=== PATIENT | female | born 1940 | race Caucasian/White ===

== ENCOUNTER 2017-06-23 15:08 | Emergency (ER) | payer OTHER ==
[~2017-06-23] VITALS: Ht 167.6 cm; Wt 77.0 kg
[2017-06-23 15:39] VITALS: BP 130/73; PULSE 75; RESP 20; TEMP 98.1; O2SAT 97
[2017-06-23 16:04] VITALS: BP 165/71; PULSE 92; RESP 20; O2SAT 93
[2017-06-23] MEDS ORDERED: SYMB80AE INH (16:04)
[2017-06-23] MEDS ORDERED: SPIRCAP INH (16:04)
[2017-06-23] MEDS ORDERED: ALBU6.7H INH (16:04)
--- NOTE | 2017-06-23 16:30 | PD ---
HPI Chief Complaint: Fall Time Seen by Provider: 16:02 Travel History International Travel<30 days: No Contact w/Intl Traveler<30days: No Traveled to known affect area: No History of Present Illness HPI 77-year-old female here for evaluation of a left clavicle fracture, left arm fracture and right rib fracture after a mechanical fall that occurred Tuesday. She states that she went to an urgent care prior to arrival and obtained x-rays there. The physician advised her to go to the hospital for concern of left scapula and clavicle fracture, and old displaced left humerus fracture. She does have pain with inspiration secondary to fractures of right ribs, left clavicle, and right scapula. She denies fever, chills, chest pain, LOC, headache, dizziness, visual changes, loss of consciousness, head pain, neck pain , back pain, abdominal pain, leg pain. Not on anticoagulants. Chronic medical history includes COPD and asthma, oxygen use only at night. PFSH Past Medical History Asthma: Yes COPD: Yes Diabetes: No Sleep Apnea: Yes Tetanus Vaccination: > 5 Years Influenza Vaccination: Yes ?: Not Menopausal: Yes Past Surgical History Other Surgery: Yes (hydrodenitis) Social History Alcohol Use: Yes (occas) Tobacco Use: No Substance Use: No Allergies-Medications (Allergen,Severity, Reaction): Coded Allergies: amoxicillin (Verified Allergy, Intermediate, hives, 06/23/17) yellow dye (Verified Allergy, Intermediate, hives, 06/23/17) Reported Meds & Prescriptions Reported Meds & Active Scripts Active Hydrocodone-Acetaminophen 5-325 mg Tab 1 Tab PO Q6H PRN 5 Days Reported Proventil Hfa 6.7 GM Inh (Albuterol Sulfate) 90 Mcg/Act Aer 2 Puff INH Q4-6H PRN Symbicort Inh (Budesonide/Formoterol Fumarate) 80-4.5 Mcg/Act Aero 2 Puff INH Q12HR Spiriva Handihaler (Tiotropium Inh) 18 Mcg Cap 18 Mcg INH DAILY 1 capsule = 18 mcg Review of Systems Except as stated in HPI: all other systems reviewed are Neg Physical Exam Narrative GENERAL: Well-developed well-nourished in mild distress SKIN: Focused skin assessment warm/dry. HEAD: Normocephalic. 3cm, round area of ecchymosis with mild TTP. Left anterior clavicle with ecchymosis EYES: Pupils equal and round. No scleral icterus. No injection or drainage. ENT: No nasal bleeding or discharge. Mucous membranes pink and moist. NECK: Trachea midline. No JVD. CARDIOVASCULAR: Regular rate and rhythm. No murmur appreciated. RESPIRATORY: No accessory muscle use. Clear to auscultation. Breath sounds equal however difficulty with inspiration secondary to pain. GASTROINTESTINAL: Abdomen soft, non-tender, nondistended. Hepatic and splenic margins not palpable. MUSCULOSKELETAL: No obvious deformities. No clubbing. No cyanosis. Left anterior clavicular area with ecchymosis of distal portion with deformity. +1 pitting edema bilateral lower extremities. Homans sign negative. Right mid thoracic paraspinal region with an area of ecchymosis and TTP. No crepitus noted on chest. NEUROLOGICAL: Awake and alert. No obvious cranial nerve deficits. Motor grossly within normal limits. Normal speech. Extremities Neurovascularly intact. PSYCHIATRIC: Appropriate mood and affect; insight and judgment normal. Data Data Last Documented VS Vital Signs Date Time Temp Pulse Resp B/P (MAP) Pulse Ox O2 Delivery O2 Flow Rate FiO2 06/23/17 16:04 92 20 165/71 (102) 93 Nasal Cannula 4.00 06/23/17 15:[address] Thorax/ Chest Wo Iv Contras (06/23/17 ) Morphine Inj (Morphine Inj) (06/23/17 16:45) Complete Blood Count With Diff (06/23/17 16:52) Basic Metabolic Panel (Bmp) (06/23/17 16:52) Arterial Blood Gas (Abg) (06/23/17 ) Prothrombin Time / Inr (Pt) (06/23/17 16:52) Act Partial Throm Time (Ptt) (06/23/17 16:52) Ct Humerus W/O Iv Contrast (06/23/17 ) Splint Or Brace Apply/Monitor (06/23/17 19:27) Ed Discharge Order (06/23/17 19:49) Labs Laboratory Tests Test 06/23/17 18:50 White Blood Count 6.0 TH/MM3 Red Blood Count 4.39 MIL/MM3 Hemoglobin 15.2 GM/DL Hematocrit 45.8 % Mean Corpuscular Volume 104.2 FL Mean Corpuscular Hemoglobin 34.5 PG Mean Corpuscular Hemoglobin Concent 33.1 % Red Cell Distribution Width 13.3 % Platelet Count 165 TH/MM3 Mean Platelet Volume 9.2 FL Neutrophils (%) (Auto) 73.6 % Lymphocytes (%) (Auto) 15.8 % Monocytes (%) (Auto) 7.1 % Eosinophils (%) (Auto) 2.8 % Basophils (%) (Auto) 0.7 % Neutrophils # (Auto) 4.4 TH/MM3 Lymphocytes # (Auto) 1.0 TH/MM3 Monocytes # (Auto) 0.4 TH/MM3 Eosinophils # (Auto) 0.2 TH/MM3 Basophils # (Auto) 0.0 TH/MM3 CBC Comment DIFF FINAL Differential Comment Prothrombin Time 11.4 SEC Prothromb Time International Ratio 1.0 RATIO Activated Partial Thromboplast Time 26.4 SEC Blood Urea Nitrogen 16 MG/DL Creatinine 0.66 MG/DL Random Glucose 90 MG/DL Calcium Level 9.3 MG/DL Sodium Level 141 MEQ/L Potassium Level 3.9 MEQ/L Chloride Level 107 MEQ/L Carbon Dioxide Level 27.5 MEQ/L Anion Gap 7 MEQ/L Estimat Glomerular Filtration Rate 87 ML/MIN MDM Medical Decision Making Medical Screen Exam Complete: Yes Emergency Medical Condition: Yes Differential Diagnosis Nondisplaced left clavicular fracture versus displaced versus right rib fracture Narrative Course 77-year-old female here for evaluation of a left clavicular fracture, old left humerus fracture and right rib fracture after a fall that occurred Tuesday. States she came directly over from urgent care at their recommendation for evaluation of the shoulder. According to her discharge papers from urgent care they were concerned about the multiple fractures, O2 sats <85%, an SOB since fall. Physical exam revealed deformed left clavicle with ecchymosis, TTP of posterior right mid thoracic region. Neurovascular intact. Morphine administered for pain relief. CT chest- left distal clavicular fracture without tenting, distant humerus fracture Labs within normal limits. Pt to follow up with ortho outpatient. Pt neurovascularly intact. Discussed case with my attending and he agreed for discharge and outpatient ortho Physical exam revealed ecchymosis of the left clavicle without tenting and posterior right mid thoracic rib, old fracture left humerus. Morphine 4mg for pain relief. Diagnosis Primary Impression: Clavicular fracture Qualified Codes: S42.032A - Displaced fracture of lateral end of left clavicle , initial encounter for closed fracture Referrals: Orthopedist Primary Care Physician Additional Instructions: Follow-up with an word processing specialist within 2 days. Use pain medication sparingly. Use sling and swath. If he developed worsening pain, increased shortness of breath, turned to the emergency department further treatment and evaluation. Scripts Hydrocodone-Acetaminophen (Hydrocodone-Acetaminophen) 5-325 mg Tab 1 TAB PO Q6H Y for PAIN for 5 Days, #20 TAB 0 Refills Prov: John Thomason MD 06/23/17 Disposition: 01 DISCHARGE HOME Condition: Stable Aminata Bruner Jun 23, 2017 16:30
[2017-06-23] MEDS ORDERED: MORPHINE SULFATE 4 MG/ML INJ IV PUSH ONE (16:45)
--- NOTE | 2017-06-23 18:49 | RADRPT ---
EXAM DATE/TIME: 06/23/2017 18:29 [facility] COMPARISON: No previous studies available for comparison. INDICATIONS : Trauma, fall. RADIATION DOSE: 3.48 CTDIvol (mGy) MEDICAL HISTORY : Chronic obstructive pulmonary disease. SURGICAL HISTORY : None. ENCOUNTER: Initial ACUITY: 1 day PAIN SCALE: 8/10 LOCATION: chest TECHNIQUE: Volumetric scanning of the chest was performed. Using automated exposure control and adjustment of t he mA and/or kV according to patient size, radiation dose was kept as low as reasonably achievable to obtain optimal diagnostic quality images. DICOM format image data is available electronically for r eview and comparison. Follow-up recommendations for detected pulmonary nodules are based at a minimum on nodule size and pa tient risk factors according to Fleischner Society Guidelines. FINDINGS: There is a comminuted distal left clavicle fracture. Remote left proximal humeral fracture. There is mild airspace distal airway disease posterior segment right upper lobe with underlying emphy sema. No pleural or pericardial effusion. No adenopathy. No mediastinal hematoma identified. Mild cor onary calcifications. No acute findings in the upper abdomen. CONCLUSION: 1. Distal left clavicle fracture. Remote left humeral fracture. 2. Mild airspace and distal airway disease posterior segment right upper lobe. Emphysema. Mild warren ry calcifications. Luke Nuñez MD on June 23, 2017 at 18:44 Board Certified Radiologist. This report was verified electronically.
--- NOTE | 2017-06-23 18:59 | RADRPT ---
EXAM DATE/TIME: 06/23/2017 18:35 [facility] COMPARISON: No previous studies available for comparison. INDICATIONS : Trauma, fall. RADIATION DOSE: 14.19 CTDIvol (mGy) MEDICAL HISTORY : None SURGICAL HISTORY : None. ENCOUNTER: Initial ACUITY: 1 day PAIN SCALE: 8/10 LOCATION: Left humerus TECHNIQUE: Volumetric scanning of the humerus was performed. Using automated exposure control and adjustment of the mA and/or kV according to patient size, radiation dose was kept as low as reasonably achievable to obtain optimal diagnostic quality images. DICOM format image data is available electronically for review and comparison. FINDINGS: There is a remote proximal humeral fracture bridging callus and residual deformity in the proximal sh aft. There is a comminuted distal clavicle fracture with mild displacement. No disruption of the acromiocl avicular joint identified. CONCLUSION: 1. Comminuted distal clavicle fracture with mild displacement. 2. Remote proximal humeral fracture with bridging callus. Luke Nuñez MD on June 23, 2017 at 18:55 Board Certified Radiologist. This report was verified electronically.
[2017-06-23] MEDS ORDERED: HYDR-3516 PO (19:18)
[2017-06-23 19:27] LABS: AUTOMATED NEUTROPHIL # 4.4 TH/MM3 (1.8-7.7); BASOPHIL % 0.7 % (0.0-2.0); EOSINOPHIL # 0.2 TH/MM3 (0-0.4); EOSINOPHIL % 2.8 % (0.0-4.0); HEMATOCRIT 45.8 % (35.0-46.0); HEMO FLAGS DIFF FINAL; LYMPH % 15.8 % (9.0-44.0); MEAN CELL VOLUME 104.2 FL (80.0-100.0); MEAN CORPUSCULAR HEMOGLOBIN 34.5 PG (27.0-34.0); MEAN CORPUSCULAR HGB CONC 33.1 % (32.0-36.0); MONO % 7.1 % (0.0-8.0); NEUT % 73.6 % (16.0-70.0); PLATELET COUNT 165 TH/MM3 (150-450); RED BLOOD COUNT 4.39 MIL/MM3 (4.00-5.30); RED CELL DISTRIBUTION WIDTH 13.3 % (11.6-17.2)
[2017-06-23 19:34] LABS: APTT (PATIENT) 26.4 SEC (24.3-30.1); PROTHROMBIN TIME - PATIENT 11.4 SEC (9.8-11.6)
[2017-06-23 19:39] LABS: BICARBONATE 27.5 MEQ/L (21.0-32.0); POTASSIUM 3.9 MEQ/L (3.5-5.1)
[2017-06-23] MEDS ORDERED: ACETAMINOPHEN/HYDROcodone 325 MG/5 MG TAB PO ONE (20:45)
[2017-06-23 21:04] VITALS: BP 158/72
== END 2017-06-23 21:10 | disposition home or self-care (01) ==
LOC: NEPC 15:08
DX: S42.032A Displaced fracture of lateral end of left clavicle, initial encounter for closed fracture (principal); S22.31XA Fracture of one rib, right side, initial encounter for closed fracture; J44.9 Chronic obstructive pulmonary disease, unspecified; J45.909 Unspecified asthma, uncomplicated; G47.30 Sleep apnea, unspecified; W19.XXXA Unspecified fall, initial encounter
CPT/HCPCS: 29240; 71250; 73200; 80048; 85025; 85610; 85730; 96374; 99285; J2270